=== PATIENT | male | born 1940 | race Caucasian/White ===

== ENCOUNTER → 2018-06-03 13:45 | Outpatient (CLI) | payer MEDICARE, OTHER, SELFPAY ==
--- NOTE | 2018-06-03 | DI.ECHO.S_ITS ---
[facility] +---------+ : : [address] : [facility] : : : : [id number] : : : : Phone: [phone]---------+ Echocardiogram Report + + :Name: SHEREE GORDON Study Date: 06/03/2018 Height: 71 in : :[facility] Exam Location: [facility] Weight: 196 lb : : Gender: Male BSA: 2.1 m2 : :: 1940 Age: 78 yrs BP: 140/70 mmHg: :Reason For Study: SOB : :Ordering Physician: Saima : :Paliwal Performed By: Debby Page : + + Interpretation Summary The left ventricle is normal in size. The ejection fraction is estimated to be 65-70%. The right ventricle is normal in size and function. Non significant valvular pathology seen. The ascending aorta is mild-moderately enlarged. The IVC is of normal diameter and collapses greater than 50% with a sniff. This suggests a low right atrial pressure of 3 mm Hg. Procedure: A two-dimensional transthoracic echocardiogram with color flow and Doppler was performed. The study quality was technically adequate. Most of the acoustic windows were suboptimal, but the best imaging was obtained from the subcostal window. The heart rate ranged between 54-62 bpm during the study. The patient was in normal sinus rhythm during the exam. The patient had frequent PACs during the exam. Left Ventricle: The left ventricle is normal in size. There is normal left ventricular wall thickness. There is no thrombus. The ejection fraction is estimated to be 65-70%. There are no focal wall motion abnormalities. MV E/A: 1.2 Med Peak E' Félix: 6.3 cm/sec E/E' med: 14.8. Right Ventricle: The right ventricle is normal in size and function. Atria: Both atria are moderately dilated. Mitral Valve: The mitral valve leaflets are slightly calcified. There is trace mitral regurgitation. Aortic Valve: The aortic valve is trileaflet. The aortic valve opens well. No aortic regurgitation is present. Tricuspid Valve: The tricuspid valve is normal in structure and function. There is trace tricuspid regurgitation. Pulmonary artery pressures cannot be estimated because of the lack of a measurable TR jet velocity. Pulmonic Valve: The pulmonic valve is not well visualized. There is mild pulmonic regurgitation. Great Vessels: The aortic root is mildly dilated. The ascending aorta is mild-moderately enlarged. The aortic arch could not be visualized. The pulmonary artery is not well visualized, but is probably normal size. The IVC is of normal diameter and collapses greater than 50% with a sniff. This suggests a low right atrial pressure of 3 mm Hg. Pericardium/ Pleura There is no pericardial effusion. There is no pleural effusion. MMode/2D Measurements & Calculations LVIDd: 5.3 cm LVOT diam: 2.3 cm LVIDs: 3.4 cm Ao root diam: 4.2 cm FS: 35.4 % asc Aorta Diam: 4.1 cm EPSS: 0.30 cm IVSd: 0.80 cm LVPWd: 0.95 cm LV faust. diameter/BSA (cm/m^2): 2.5 LV sys. diameter/BSA (cm/m^2): 1.6 LA A2 area: 26.8 cm2 RA long axis: 5.8 cm LA A4 area: 25.3 cm2 RA area: 23.4 cm2 LA length (vol): 6.2 cm RA vol: 80.4 ml LA vol: 92.8 ml RA : 38.5 ml/m2 LA vol index: 44.4 ml/m2 IVC diam: 1.7 cm Doppler Measurements & Calculations Ao V2 max: 105.0 cm/sec LVOT Max Félix: 102.7 cm/sec Ao V2 mean: 75.2 cm/sec LV V1 max P.2 mmHg Ao max P.4 mmHg LV V1 VTI: 25.4 cm Ao mean P.4 mmHg SINA(I,D): 3.8 cm2 Ao V2 VTI: 26.7 cm SINA(V,D): 3.9 cm2 sev ratio: 0.95 SINA indexed to BSA (cm^2/m^2): 1.8 MV E max félix: 92.4 cm/sec PA V2 max: 100.7 cm/sec MV A max félix: 78.9 cm/sec PA V2 mean: 64.7 cm/sec MV E/A: 1.2 PA mean P.0 mmHg Med Peak E' Félix: 6.3 cm/sec PA Accel Time: 0.06 sec E/E' med: 14.8 Lat Peak E' Félix: 9.4 cm/sec E/E' lat: 9.8 E/e' average: 12.3 MV P1/2t: 57.1 msec MV P1/2t max félix: 93.5 cm/sec MVA(P1/2t): 3.8 cm2 Reading Physician:CARO
== END ==
PROVIDERS: PCP Internal Medicine; Visit Provider Internal Medicine Cardiovascular Disease
DX: R06.02 Shortness of breath (principal); I73.9 Peripheral vascular disease, unspecified; R07.89 Other chest pain; I10 Essential (primary) hypertension; E78.5 Hyperlipidemia, unspecified; I49.1 Atrial premature depolarization
CPT/HCPCS: 93306